=== PATIENT | female | born 1945 | race Caucasian/White ===

== ENCOUNTER 2019-07-17 09:45 | Emergency (ER) | payer MEDICARE ==
[~2019-07-17] VITALS: Ht 165.1 cm; Wt 95.5 kg
[2019-07-17 09:58] VITALS: TEMP 97.9
[2019-07-17] MEDS ORDERED: BENADRYL25 M2 PO (10:13)
[2019-07-17] MEDS ORDERED: PAXIL CR25 MG PO (10:14)
[2019-07-17] MEDS ORDERED: SINEQUAN 1010 MG/CAP PO (10:14)
[2019-07-17] MEDS ORDERED: SYNTHROID0.075 MG/T PO (10:15)
[2019-07-17 10:24] LABS: COLLECTION METHOD CLEAN CATCH
[2019-07-17 10:32] LABS: BASO # 0.1 (0.0-0.2); BASO % 0.8 % (0.0-2.0); EOS # 0.3 (0.0-0.7); GRAN # 4.2 (1.4-6.5); GRAN % 53.1 % (42.2-75.2); HEMATOCRIT 40.6 % (37.0-47.0); HEMOGLOBIN 12.5 g/dl (12.5-16.0); LYMPH # 2.8 (1.2-3.4); LYMPH % 36.1 % (20.0-51.0); MEAN CELL VOLUME 77 fl (80.0-100.0); MEAN CORPUSCULAR HEMOGLOBIN 24 pg (27.0-31.0); MEAN CORPUSCULAR HGB CONC 31 g/dl (33.0-37.0); MEAN PLATELET VOLUME 8.7 fl (7.4-10.4); MONO # 0.4 (0.1-0.6); MONO % 5.6 % (1.7-9.3); PLATELET COUNT 401 K/mm3 (130-400); RED BLOOD COUNT 5.27 M/mm3 (4.10-5.30); REDCELL DISTRIBUTION WIDTH-CV 17.2 % (11.5-14.5)
[2019-07-17 10:35] LABS: MUCOUS Present /lpf; PH 7 (5-8); SQUAMOUS EPITHELIAL 0-2 /hpf; URINE APPEARANCE Clear; URINE BACTERIA None Seen /hpf; URINE BILIRUBIN Negative (NEGATIVE); URINE BLOOD Negative (NEGATIVE); URINE COLOR Straw; URINE GLUCOSE Negative (NEGATIVE); URINE KETONE Negative (NEGATIVE); URINE LEUKOCYTE ESTERASE Negative (NEGATIVE); URINE NITRATE Negative (NEGATIVE); URINE PROTEIN(semi-quant) Negative (NEGATIVE); URINE RBC 0-2 /hpf; URINE UROBILINOGEN Negative (NEGATIVE)
[2019-07-17 10:44] LABS: ALBUMIN 4.5 gm/dL (3.5-5.0); BILIRUBIN,TOTAL 0.3 mg/dL (0.0-1.0); C-REACTIVE PROTEIN 1.9 mg/dL (0.0-0.9); CREATININE, serum 0.78 (0.52-1.25)
[2019-07-17] MEDS ORDERED: PRILOTC (11:22)
[2019-07-17] MEDS ORDERED: MEDROL 4MG DOSPA4 MG PO (11:44)
[2019-07-17] MEDS ORDERED: NORCO 325 MG-51 TAB PO ×2 (11:44)
[2019-07-17 11:52] VITALS: BP 137/88; PULSE 76
[2019-07-18] MEDS ORDERED: NORCO 325 MG-51 TAB PO (12:02)
== END 2019-07-17 11:53 | disposition home or self-care (01) ==
LOC: COL.ER 09:45
PROVIDERS: Emergency Medicine
DX: M25.551 Pain in right hip (principal); M70.71 Other bursitis of hip, right hip; Z90.710 Acquired absence of both cervix and uterus; Z90.89 Acquired absence of other organs

== ENCOUNTER → 2019-07-25 | Outpatient (CLI) | payer MEDICARE ==
[~2019-07-25] MED LIST: BENADRYL25 M2 PO; MEDROL 4MG DOSPA4 MG PO; NORCO 325 MG-51 TAB PO; PAXIL CR25 MG PO; PRILOTC; SINEQUAN 1010 MG/CAP PO; SYNTHROID0.075 MG/T PO
== END ==
LOC: COL.VAS 12:01
DX: M79.89 Other specified soft tissue disorders (principal)

== ENCOUNTER 2019-08-28 10:28 | Inpatient (IN) | payer MEDICARE ==
[~2019-08-28] VITALS: Ht 167.6 cm; Wt 93.4 kg
[2019-08-28] MEDS ORDERED: NORVASC 5MG5 MG/TAB PO (10:48)
[2019-08-28] MEDS ORDERED: SINEQUAN 5050 MG/CAP PO (10:49)
[2019-08-28] MEDS ORDERED: 00186-0370-20 IH (10:49)
[2019-08-28] MEDS ORDERED: PAXIL 30MG30 MG PO (10:49)
[2019-08-28 11:05] LABS: BASO % 0.2 % (0.0-2.0); EOS # 0.2 (0.0-0.7); EOS % 2.5 % (0-4.0); GRAN # 6.1 (1.4-6.5); GRAN % 69.2 % (42.2-75.2); HEMATOCRIT 37.5 % (37.0-47.0); HEMOGLOBIN 11.8 g/dl (12.5-16.0); LYMPH % 22.7 % (20.0-51.0); MEAN CELL VOLUME 81 fl (80.0-100.0); MEAN CORPUSCULAR HEMOGLOBIN 25 pg (27.0-31.0); MEAN CORPUSCULAR HGB CONC 32 g/dl (33.0-37.0); MEAN PLATELET VOLUME 8.9 fl (7.4-10.4); MONO # 0.4 (0.1-0.6); MONO % 4.4 % (1.7-9.3); PLATELET COUNT 333 K/mm3 (130-400); RED BLOOD COUNT 4.66 M/mm3 (4.10-5.30); REDCELL DISTRIBUTION WIDTH-CV 17.9 % (11.5-14.5)
[2019-08-28 11:09] LABS: INR 1.1 (0.8-3.0); PROTHROMBIN TIME 11.8 SECONDS (9.7-12.8)
[2019-08-28 11:20] LABS: ALBUMIN 3.8 gm/dL (3.5-5.0); BILIRUBIN,TOTAL 0.3 mg/dL (0.0-1.0); CALCIUM 9.4 mg/dL (8.4-10.2); CREATININE, serum 0.71 (0.52-1.25); POTASSIUM 3.2 mmol/L (3.4-5.0); TOTAL PROTEIN 7.2 gm/dL (6.4-8.2)
[2019-08-28] MEDS ORDERED: TYLENOL 325MG325 MG PO (12:09)
--- NOTE | 2019-08-28 13:03 | NUR ---
arrived on unit from emergency department per WC, assisted over and sitting on side of bed
[2019-08-28] MEDS ORDERED: BIOTIN10000 MC1 PO (13:28)
[2019-08-28] MEDS ORDERED: LUTEIN20 M1 PO (13:29)
[2019-08-28] MEDS ORDERED: PRENATAL TABLET PO (13:29)
--- NOTE | 2019-08-28 13:40 | NUR ---
full assessment completed, see interventions for further info
[2019-08-28 14:42] VITALS: BP 145/66; PULSE 70; TEMP 98.1
--- NOTE | 2019-08-28 14:55 | NUR ---
resting in bed, denies pain, requesting something to eat and room service notified
[2019-08-28 15:30] VITALS: BP 162/88; PULSE 79; TEMP 97.9
--- NOTE | 2019-08-28 16:11 | NUR ---
in bed watching TV, had light lunch and tolerated well
--- NOTE | 2019-08-28 18:07 | NUR ---
sitting up in bed eating supper, denies needs
--- NOTE | 2019-08-28 18:51 | NUR ---
bedside shift report given to MARILUZ Vanessa
--- NOTE | 2019-08-28 20:00 | NUR ---
PT IN BED WITH HOB AT 45 DEGREE ANGLE. PT VISITED BY RT AND WAS GIVEN BREATHING TREATMENT. PT IS A/O X4, WITH NO C/O PAIN OR DISCOMFORT. PT HAS NO NEEDS AT THIS TIME, CALL LIGHT WITHIN REACH.
[2019-08-28 20:24] VITALS: BP 160/68; PULSE 76; TEMP 98.4
[2019-08-28 23:59] VITALS: BP 144/57; PULSE 75; TEMP 98
--- NOTE | 2019-08-29 03:50 | NUR ---
NO ISSUES THIS NIGHT. PT SLEPT/RESTED WELL. RESP EVEN AN UNLABORED. CALL LIGHT WITHIN REACH.
[2019-08-29 03:53] VITALS: BP 158/67; PULSE 68; TEMP 97.6
[2019-08-29 07:04] LABS: BASO % 0.4 % (0.0-2.0); EOS # 0.2 (0.0-0.7); EOS % 3.1 % (0-4.0); GRAN # 4.4 (1.4-6.5); GRAN % 61.9 % (42.2-75.2); HEMOGLOBIN 10.5 g/dl (12.5-16.0); LYMPH % 27.2 % (20.0-51.0); MEAN CELL VOLUME 81 fl (80.0-100.0); MEAN CORPUSCULAR HEMOGLOBIN 25 pg (27.0-31.0); MEAN CORPUSCULAR HGB CONC 31 g/dl (33.0-37.0); MEAN PLATELET VOLUME 10.2 fl (7.4-10.4); MONO # 0.5 (0.1-0.6); MONO % 6.8 % (1.7-9.3); PLATELET COUNT 313 K/mm3 (130-400); RED BLOOD COUNT 4.26 M/mm3 (4.10-5.30); REDCELL DISTRIBUTION WIDTH-CV 17.9 % (11.5-14.5)
[2019-08-29 07:14] LABS: HEMATOCRIT 34.3 % (37.0-47.0)
[2019-08-29 07:18] LABS: CREATININE, serum 0.57 (0.52-1.25); POTASSIUM 3.6 mmol/L (3.4-5.0)
[2019-08-29 11:39] VITALS: BP 143/55; PULSE 71; TEMP 98.2
--- NOTE | 2019-08-29 14:10 | NUR ---
SW met with the patient to discuss discharge plan. The patient lives alone in [place]. She states that her daughter, Le Goldberg (ph#[phone]), and grandson also live in town. She reports independence with ADLs and does not have any DME. The patient's PCP is Dr. Richa Tobar and she receives her medications at [facility]. She reports no difficulties obtaining her meds. The patient does not have advanced directives in EMR, but she reports that she does have them completed and that her daughter, Le, is her DPOA-HC. The patient plans to return home upon discharge. No additional needs at this time.
[2019-08-29 15:19] VITALS: BP 144/69; PULSE 80; TEMP 98.8
[2019-08-29 17:53] VITALS: PULSE 72
[2019-08-29 19:16] VITALS: BP 158/74; PULSE 85; TEMP 98.2
--- NOTE | 2019-08-29 20:00 | NUR ---
Patient assessed at this time. Alert and oriented x 4, and able to make needs known. Denies having pain and discomfort. Peripheral IV to right AC flushed. Site is without redness, warmth, swelling, and pain. Denies SOB and dyspnea. LS CTA. Respirations even and unlabored. HRR. Telemetry in place. Capillary refill less than 3 seconds. Non-tenting skin turgor. BSAx4. Abdomen soft and non-tender. 2+ edema BLE. Voices no questions, needs, or concerns at this time. Resting in bed with call light within reach.
[2019-08-30 00:16] VITALS: BP 148/58; PULSE 74; TEMP 98.1
[2019-08-30 04:53] VITALS: BP 157/69; PULSE 70; TEMP 98.7
--- NOTE | 2019-08-30 05:08 | NUR ---
Patient has denied having pain and discomfort this shift. Voices no questions, needs, or concerns at this time. Resting in bed with call light within reach.
[2019-08-30 08:12] VITALS: BP 176/57; PULSE 61; TEMP 97.9
[2019-08-30 12:21] VITALS: BP 161/101; PULSE 72; TEMP 97.5
--- NOTE | 2019-08-30 13:24 | NUR ---
The patient qualified for 2 liters of continuous oxygen. CLIF met with the patient to discuss DME options. The patient chose [facility]. She states that she has a concentrator for at night from [facility], when she was living in [place]. CLIF contacted and faxed the patient's oxygen order to Norma at [facility]. Norma reports that she has spoken to [facility] and they will transfer her care to them. [facility] to deliver a portable tank to the patient's room. CLIF updated the patient. The patient is to discharge back home today, 08/29. No additional needs at this time.
[2019-08-30] MEDS ORDERED: XARELTO15 MG PO (16:56)
[2019-08-30] MEDS ORDERED: NORVASC 10MG10 MG PO (16:59)
[2019-08-30] MEDS ORDERED: XARELTO20 MG PO (16:59)
--- NOTE | 2019-08-30 18:24 | NUR ---
PATIENT DC TO HOME VIA PRIVATE VEHICLE @ [id number]. AT TIME OF DISCHARGE PATIENT A/O X 4. DENIES C/O PAIN OR DISCOMFORT. HOME OXYGEN SUPPLIES AT HOSPITAL AND SENT HOME WITH PATIENT. PRINTED DC INSTRUCTIONS TO INCLUDE F/U, MEDICATIONS, AND DISCHARGE INSTRUCTIONS. ACKNOWLEDGES NEEDING TO PICK MEDICATION UP FROM PHARMACY. REVIEWED XARELTO ORDERS WITH DOSE CHANGES. PATIENT ACKNOWLEDGES UNDERSTANDING.
== END 2019-08-30 18:30 | disposition home or self-care (01) | DRG 176 ==
LOC: COL.ER 10:28 → MEDICAL 12:41
PROVIDERS: Emergency Medicine; Physician Assistant; ADMIT Hospitalist
DX: I26.99 Other pulmonary embolism without acute cor pulmonale (principal); J98.11 Atelectasis; J96.11 Chronic respiratory failure with hypoxia; I10 Essential (primary) hypertension; E03.9 Hypothyroidism, unspecified; E87.6 Hypokalemia; R73.9 Hyperglycemia, unspecified; F32.9 Major depressive disorder, single episode, unspecified; E11.65 Type 2 diabetes mellitus with hyperglycemia; J45.909 Unspecified asthma, uncomplicated; G47.00 Insomnia, unspecified; F41.9 Anxiety disorder, unspecified; K21.9 Gastro-esophageal reflux disease without esophagitis; Z79.02 Long term (current) use of antithrombotics/antiplatelets; Z79.1 Long term (current) use of non-steroidal anti-inflammatories (NSAID); Z86.711 Personal history of pulmonary embolism; Z87.891 Personal history of nicotine dependence; Z90.710 Acquired absence of both cervix and uterus; Z88.5 Allergy status to narcotic agent; Z88.6 Allergy status to analgesic agent
CPT/HCPCS: 99222-AI; 99232-AI; 99239; J1650; Q9967

== ENCOUNTER → 2019-09-14 | Outpatient (CLI) | payer MEDICARE ==
[~2019-09-14] MED LIST changes: +00186-0370-20 IH; +BIOTIN10000 MC1 PO; +LUTEIN20 M1 PO; +NORVASC 10MG10 MG PO; +NORVASC 5MG5 MG/TAB PO; +PAXIL 30MG30 MG PO; +PRENATAL TABLET PO; +SINEQUAN 5050 MG/CAP PO; +TYLENOL 325MG325 MG PO; +XARELTO15 MG PO; +XARELTO20 MG PO
== END ==
LOC: COL.RAD 08:17
DX: I26.99 Other pulmonary embolism without acute cor pulmonale (principal); R91.8 Other nonspecific abnormal finding of lung field
CPT/HCPCS: Q9967

== ENCOUNTER → 2019-10-12 | Outpatient (CLI) | payer MEDICARE | LOC: MC.RAD 10:03 | DX: Z12.31 Encounter for screening mammogram for malignant neoplasm of breast (principal); N63.10 Unspecified lump in the right breast, unspecified quadrant ==

== ENCOUNTER 2020-07-05 23:01 | Emergency (ER) | payer MEDICARE ==
[~2020-07-05] VITALS: Ht 167.6 cm; Wt 100.0 kg
[2020-07-05 23:05] VITALS: TEMP 97.6
[2020-07-05] MEDS ORDERED: AMOXICILLIN 8751 TAB PO (23:44)
[2020-07-06 00:22] VITALS: BP 151/71; PULSE 81
== END 2020-07-06 00:27 | disposition home or self-care (01) ==
LOC: COL.ER 23:01
DX: S61.051A Open bite of right thumb without damage to nail, initial encounter (principal); M70.61 Trochanteric bursitis, right hip; I26.99 Other pulmonary embolism without acute cor pulmonale; E03.9 Hypothyroidism, unspecified; K21.9 Gastro-esophageal reflux disease without esophagitis; F32.9 Major depressive disorder, single episode, unspecified; Z90.710 Acquired absence of both cervix and uterus; Z90.89 Acquired absence of other organs; Z88.5 Allergy status to narcotic agent; Z88.6 Allergy status to analgesic agent; Z91.041 Radiographic dye allergy status; Z79.01 Long term (current) use of anticoagulants; W54.0XXA Bitten by dog, initial encounter

== ENCOUNTER 2020-09-11 14:16 | Emergency (ER) | payer MEDICARE ==
[~2020-09-11] VITALS: Ht 165.1 cm; Wt 96.4 kg
[~2020-09-11 14:16] MED LIST changes: +AMOXICILLIN 8751 TAB PO
[2020-09-11 14:44] VITALS: TEMP 97.9
[2020-09-11 15:37] LABS: BASO # 0.1 (0.0-0.2); BASO % 0.6 % (0.0-2.0); EOS # 0.2 (0.0-0.7); EOS % 2.7 % (0-4.0); GRAN # 4.9 (1.4-6.5); GRAN % 54.6 % (42.2-75.2); HEMATOCRIT 37.1 % (37.0-47.0); HEMOGLOBIN 11.3 g/dl (12.5-16.0); LYMPH # 3.1 (1.2-3.4); LYMPH % 34.7 % (20.0-51.0); MEAN CELL VOLUME 77 fl (80.0-100.0); MEAN CORPUSCULAR HEMOGLOBIN 23 pg (27.0-31.0); MEAN CORPUSCULAR HGB CONC 31 g/dl (33.0-37.0); MEAN PLATELET VOLUME 8.6 fl (7.4-10.4); MONO # 0.7 (0.1-0.6); MONO % 7.2 % (1.7-9.3); PLATELET COUNT 368 K/mm3 (130-400); RED BLOOD COUNT 4.83 M/mm3 (4.10-5.30)
[2020-09-11 15:58] LABS: PROTHROMBIN TIME 12.5 SECONDS (9.7-12.8)
[2020-09-11 15:59] LABS: INR 1.1 (0.8-3.0)
[2020-09-11 16:04] LABS: BILIRUBIN,TOTAL 0.1 mg/dL (0.0-1.0); CALCIUM 9.4 mg/dL (8.4-10.2); CREATININE, serum 0.73 (0.52-1.25); TOTAL PROTEIN 7.6 gm/dL (6.4-8.2)
[2020-09-11] MEDS ORDERED: ZITHROMAX Z PA250 MG PO (18:17)
[2020-09-11 18:45] VITALS: BP 153/76; PULSE 80
== END 2020-09-11 18:43 | disposition home or self-care (01) ==
LOC: COL.ER 14:16
PROVIDERS: Physician Assistant
DX: A31.0 Pulmonary mycobacterial infection (principal); I10 Essential (primary) hypertension; J45.909 Unspecified asthma, uncomplicated; K21.9 Gastro-esophageal reflux disease without esophagitis; E03.9 Hypothyroidism, unspecified; F32.9 Major depressive disorder, single episode, unspecified; F41.9 Anxiety disorder, unspecified; G47.00 Insomnia, unspecified; Z86.711 Personal history of pulmonary embolism; Z87.891 Personal history of nicotine dependence; Z79.01 Long term (current) use of anticoagulants; Z79.890 Hormone replacement therapy; Z79.51 Long term (current) use of inhaled steroids; Z79.899 Other long term (current) drug therapy
CPT/HCPCS: C9113; J7030; Q9967

== ENCOUNTER → 2021-02-18 | Outpatient (CLI) | payer MEDICARE ==
[~2021-02-18] MED LIST changes: +ZITHROMAX Z PA250 MG PO
== END ==
LOC: MHCPAIN 13:06
DX: M47.817 Spondylosis without myelopathy or radiculopathy, lumbosacral region (principal); M54.50 Low back pain, unspecified; M53.3 Sacrococcygeal disorders, not elsewhere classified
CPT/HCPCS: G0463

== ENCOUNTER → 2021-03-06 | Outpatient (CLI) | payer MEDICARE | LOC: MHCPAIN 10:12 | DX: M47.817 Spondylosis without myelopathy or radiculopathy, lumbosacral region (principal); M54.50 Low back pain, unspecified; M53.3 Sacrococcygeal disorders, not elsewhere classified ==

== ENCOUNTER → 2021-03-12 | Outpatient (CLI) | payer MEDICARE | LOC: MHCPAIN 15:03 | DX: M47.816 Spondylosis without myelopathy or radiculopathy, lumbar region (principal); M54.50 Low back pain, unspecified; M53.3 Sacrococcygeal disorders, not elsewhere classified | CPT/HCPCS: G0463 ==

== ENCOUNTER → 2021-05-26 | Outpatient (CLI) | payer MEDICARE | LOC: MHCPAIN 13:00 | DX: M47.817 Spondylosis without myelopathy or radiculopathy, lumbosacral region (principal); M54.50 Low back pain, unspecified; M53.3 Sacrococcygeal disorders, not elsewhere classified | CPT/HCPCS: G0463 ==

== ENCOUNTER → 2021-06-10 | Outpatient (CLI) | payer MEDICARE | LOC: MHCPAIN 05-26 10:28 | DX: M47.817 Spondylosis without myelopathy or radiculopathy, lumbosacral region (principal); M54.50 Low back pain, unspecified; M53.3 Sacrococcygeal disorders, not elsewhere classified | CPT/HCPCS: G0463 ==

== ENCOUNTER → 2021-06-26 | Outpatient (CLI) | payer MEDICARE | LOC: MHCPAIN 12:18 | DX: M47.817 Spondylosis without myelopathy or radiculopathy, lumbosacral region (principal); M54.50 Low back pain, unspecified; M53.3 Sacrococcygeal disorders, not elsewhere classified | CPT/HCPCS: J1100; J2250; J3010 ==

== ENCOUNTER 2021-09-28 13:28 | Emergency (ER) | payer MEDICARE ==
[~2021-09-28] VITALS: Ht 167.6 cm; Wt 90.9 kg
[2021-09-28 13:39] VITALS: BP 164/79; PULSE 72; TEMP 98
== END 2021-09-28 14:15 | disposition home or self-care (01) ==
LOC: COL.ER 13:28
DX: M25.552 Pain in left hip (principal); Z86.711 Personal history of pulmonary embolism; Z79.01 Long term (current) use of anticoagulants; Z88.5 Allergy status to narcotic agent; X50.0XXA Overexertion from strenuous movement or load, initial encounter

== ENCOUNTER 2021-10-22 11:52 | Day surgery (SDC) | payer MEDICARE ==
[~2021-10-22] VITALS: Ht 167.6 cm; Wt 91.5 kg
[2021-10-22] MEDS ORDERED: ULTRAM 50MG TAB50 MG PO (12:41)
[2021-10-22] MEDS ORDERED: BUSPAR 30MG30 MG/TAB PO (12:41)
[2021-10-22 12:54] VITALS: BP 176/81; PULSE 72; TEMP 98.3
[2021-10-22 14:45] VITALS: BP 161/72; PULSE 56; TEMP 98.1
--- NOTE | 2021-10-22 14:45 | NUR ---
PT TO BAY 1 PER CART FROM ENDO ROOM. VS OBTAINED. CALL LIGHT WITHIN REACH.
[2021-10-22 15:00] VITALS: BP 139/69; PULSE 63
--- NOTE | 2021-10-22 15:00 | NUR ---
PT TOLERATING MUFFIN AND JUICE. DENIES ANY NEEDS AT THIS TIME
[2021-10-22 15:15] VITALS: BP 154/71; PULSE 56
--- NOTE | 2021-10-22 15:15 | NUR ---
PT C/O DENIES ANY NEEDS AT THIS TIME.
[2021-10-22 15:18] VITALS: BP 151/75; PULSE 53
--- NOTE | 2021-10-22 15:25 | NUR ---
DISCHARGE EDUCATION COMPLETED WITH PT AND HER FRIEND. VERBALIZED UNDERSTANDING OF HOME AND FOLLOW UP. ALL QUESTIONS ANSWERED. DISCHARGE PAPERWORK GIVEN TO PT.
--- NOTE | 2021-10-22 15:40 | NUR ---
PT OFF UNIT PER WHEELCHAIR. PT DISCHARGE TO HOME WITH FRIEND PER PERSONAL VEHICLE.
== END 2021-10-22 15:40 | disposition home or self-care (01) ==
LOC: SDCO 11:52
DX: D13.2 Benign neoplasm of duodenum (principal); D12.0 Benign neoplasm of cecum; D12.3 Benign neoplasm of transverse colon; K63.5 Polyp of colon; D12.8 Benign neoplasm of rectum; D50.9 Iron deficiency anemia, unspecified; K92.1 Melena
CPT/HCPCS: J2704; J7030